=== PATIENT | male | born 2000 | race Two or more races ===

== ENCOUNTER 2024-04-18 15:51 | Emergency (ER) | payer MEDICAID, SELFPAY ==
[2024-04-18 15:52] VITALS: BMI 24.3
[2024-04-18 16:47] VITALS: BP 123/86; PULSE 107; RESP 18; TEMP 38.6; O2SAT 97
--- NOTE | 2024-04-18 17:05 | PD.EDURI ---
Upper Respiratory Inf. RME/HPI General Chief Complaint: Flu Like Symptoms Stated Complaint: COUGH, FEVER, HEADACHE VOMITING X1WK Time Seen by Provider: 04/18/24 16:45 Source: patient Arrival date/time: 04/18/24 15:51 This is a 24-year-old male who presents to the emergency department with complaints of bodyaches, cough fever , and nausea for 3 days. Related Data Previous Rx's ?Medication ?Instructions ?Recorded hydrocodone 5 mg-acetaminophen 325 1 tab PO BID PRN pain #10 tabs 09/10/22 mg tablet ibuprofen 600 mg tablet 600 mg PO Q6H #30 tabs 09/10/22 ibuprofen 800 mg tablet (IBU) 800 mg PO Q8H #20 tabs 04/18/24 promethazine-DM 6.25 mg-15 mg/5 mL 5 ml PO Q6H PRN cough #473 mL 04/18/24 oral syrup Allergies Allergy/AdvReac Type Severity Reaction Status Date / Time No Known Allergies Allergy Verified 04/18/24 15:54 Review of Systems Review of Systems Systems Reviewed: All systems reviewed, normal except as documented Narrative Review of Systems: Gen: + fever, no chills, no weight loss EYES: No discharge, no visual changes, no pain HEENT: No ear pain, + congestion, no sore throat PULM: No shortness of breath, +cough, no congestion CV: No chest pain, no dyspnea on exertion, no palpitations GI: No nausea, no vomiting, no diarrhea, no pain, no constipation : No frequency, no urgency,? no dysuria Musc/skel: No joint pain, no back pain Skin: No rash? Psyc: No hallucinations, no depression Heme/Lymph: No easy bleeding or bruising tendencies Neuro: No weakness, no headache ED Exam Narrative Physical exam: General: Sittiing in Exam table in no acute distress, answering questions appropriately HENT: normocephalic, atraumatic, EOMI, PERRLA, moist mucous membranes Chest: chest wall is nontender Cardiac: regular rate and rhythm, normal S1 and S2, no murmurs, rubs, or gallops, capillary refill ?2 seconds Pulmonary: clear to auscultation bilaterally, no wheezing, crackles, or rhonchi Abdominal: active bowel sounds, soft, nontender, nondistended Neuro: A&OX3, CN II-XII intact, sensation grossly intact bilaterally in UE and LE. Skin: no rashes, no ecchymosis Ext: no lower extremity edema Course Quality Measures none Orders Category Date Time Status Bedside COVID-19 Antigen Test NOW Care 04/18/24 16:58 Completed Bedside Influenza A&B Antigen Test NOW Care 04/18/24 16:59 Completed Ibuprofen Tab [Motrin Tab] Med 04/18/24 16:58 Discontinued 800 mg PO X1 ONE Ondansetron Odt [Zofran Odt] Med 04/18/24 17:06 Discontinued 4 mg PO X1 ONE Vital Signs Vital signs: Vital Signs Temperature 101.5 F H 04/18/24 16:47 Pulse Rate 107 H 04/18/24 16:47 Respiratory Rate 18 04/18/24 16:47 Blood Pressure 123/86 H 04/18/24 16:47 Pulse Oximetry (%) 97 04/18/24 16:47 Oxygen Delivery Method Room Air 04/18/24 16:47 Upper Respiratory Infection Patient data External records reviewed:: [facility] Clinical information provided by:: patient Social determinants that could affect healthcare access:: none Patient has the following chronic illnesses:: none How is presenting disease/condition affected by chronic disease/condition?: no chronic disease Evaluation data The following diagnostics were reviewed and interpreted by me:: other (specify) Lab and/or radiology exams considered but not ordered:: none Interpretation Summary: none Medications / Prescriptions Medications or Prescriptions considered but not ordered:: none Medication administrations:: Medication Administration History Discontinued Medications Ibuprofen (Ibuprofen Tab 400 Mg Tablet) 800 mg PO X1 ONE Stop: 04/18/24 16:59 Last Admin: 04/18/24 17:23 Dose: 800 mg Documented By: Ondansetron HCl (Ondansetron Odt 4 Mg Tabrap) 4 mg PO X1 ONE; Protocol Stop: 04/18/24 17:07 Last Admin: 04/18/24 17:23 Dose: 4 mg Documented By: All medications administered and effective Consultations Consultation(s) initiated? (list below): No Diagnosis Upper Respiratory Differential Diagnosis: otitis media, sinusitis, viral infection and influenza Most likely diagnosis given after review of the tests above:: Influenza Admission Indicated Admission indicated?: not indicated Explain why admission is indicated or not indicated:: none Admission Request Was there a request for admission?: No Disposition Plan Disposition Plan: Discharge Discharge Attestation Discharge Attestation: The patient and all family members were given an opportunity to ask questions and understood the discharge instructions. Discharge instructions specifically effects, indications for sooner follow up or return to the emergency department, and the expected course of current diagnosis. Patient condition: Stable Discharge Plan Plan Patient Disposition: HOME (Self Care) Patient condition on transfer: Stable Prescriptions/Referrals Prescriptions/Med Rec: New ibuprofen [IBU] 800 mg tablet 800 mg PO Q8H Qty: 20 0RF promethazine-DM 6.25-15 mg/5 mL syrup 5 ml PO Q6H PRN (Reason: cough) Qty: 473 0RF No Action ibuprofen 600 mg tablet 600 mg PO Q6H Qty: 30 0RF hydrocodone-acetaminophen 5-325 mg tablet 1 tab PO BID MDD 10 PRN (Reason: pain) Qty: 10 0RF Referrals: No Primary/Family,Physician [Primary Care Provider] - In 1 week Problem List Clinical Impression: Influenza Patient/Caregiver Discharge Instructions Discharge Activity: activity as tolerated Education Materials: ED Influenza (Adult) Additional Instructions: Your rapid influenza test was positive. Start Tamiflu, antipyretics to pharmacy. 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 Please follow-up with your clinic 3-day follow-up. If you develop any type of respiratory distress or change in condition please go immediately to nearest emergency department Print Language: Bulgarian Stand Alone Forms: Tammy Award Info., Work/School Release, Patient Portal Info Letter PA/MITZI Supervising Physician PA/JUNIOR GRAPHIC DESIGNER Supervising Physician: Dr. Fitzgerald
[2024-04-18 17:23] VITALS: TEMP 38.6
[2024-04-18] MEDS: IBUPROFEN TAB 400 MG TABLET 800 MG PO (17:23)
[2024-04-18] MEDS: ONDANSETRON ODT 4 MG TABRAP PO (17:23)
== END 2024-04-18 18:09 | disposition home or self-care (01) ==
PROVIDERS: Emergency Provider Emergency Medicine
DX: J11.1 Influenza due to unidentified influenza virus with other respiratory manifestations (principal)
CPT/HCPCS: 87400; 87811; 99283; Q0162; A9270